=== PATIENT | female | born 1935 ===

== ENCOUNTER → 2021-06-08 | Outpatient (CLI) | payer MEDICARE, OTHER | LOC: COL.RAD 06-03 10:00 | DX: K44.9 Diaphragmatic hernia without obstruction or gangrene (principal) ==

== ENCOUNTER → 2021-07-25 | Outpatient (RCR) | payer MEDICARE, OTHER | END | disposition home or self-care (01) | LOC: WSST | DX: R13.14 Dysphagia, pharyngoesophageal phase (principal) ==

== ENCOUNTER → 2021-08-11 | Outpatient (CLI) | payer MEDICARE, OTHER | LOC: COL.RAD 08-04 12:30 | DX: R13.14 Dysphagia, pharyngoesophageal phase (principal) ==

== ENCOUNTER 2021-08-23 11:15 | Outpatient (RCR) | payer MEDICARE, OTHER | END 2021-08-25 | disposition home or self-care (01) | LOC: WSST | DX: R13.14 Dysphagia, pharyngoesophageal phase (principal) ==